=== PATIENT | male | born 1965 | race Caucasian/White ===

== ENCOUNTER → 2017-04-27 | Outpatient (CLI) | payer OTHER ==
[2015-06-16 15:47] VITALS: BP 143/84
[~2017-04-27] MED LIST: AMIT50TA PO; COLE1TAB PO; CONTRAST GIVEN MC PRN; CYAN100070 PO; DICY10CA3 PO; GADOBUTROL 7.5 MMOL/7.5 ML VIAL INT ART ONE; HYDR1TAB12 PO; IOHEXOL 300 MG/ML 50 ML VIAL. INT ART ONE; LIDOCAINE 1% Multi-Dose 20 ML VIAL. IJ ONE; METH25VI27 SQ; OMEP20TA8 PO; OXYC-327 PO; VEDO300V IV
--- NOTE | 2017-04-27 14:26 | KCIC ---
EXAM: Fluoroscopic guided left shoulder injection for MR arthrography. HISTORY: Pain. TECHNIQUE: The risks of the procedure were discussed with the patient and written and verbal consent was obtained. A time out was performed. Fluoroscopic imaging of the left shoulder was performed and a site overlying the joint space was selected for needle entry. The skin overlying this region was sterilely prepped, draped and infiltrated with 1% lidocaine. A spinal needle was then advanced into the joint space with fluoroscopic guidance. Subsequently, a solution containing 0.1 mL Gadavist, 5 mL Omnipaque 300, 5 mL lidocaine and 10 mL saline was injected into the joint space. Fluoroscopic images demonstrate intraarticular accumulation of contrast. The needle was removed and a sterile bandage was placed at the needle entry site. The patient tolerated the procedure without difficulty and was transferred to the MR suite for the post injection MR portion of the exam. The total fluoroscopy time was 40 seconds and a single fluoroscopic image was obtained. IMPRESSION: Successful fluoroscopic guided left shoulder injection for MR arthrography. Please refer to the separate MR arthrogram report for further evaluation details. Electronically signed by: Miriam Suggs MD (04/27/2017 2:22 PM) [id number]
--- NOTE | 2017-04-27 15:28 | KCIC ---
MR arthrogram of the left shoulder Indication: Left shoulder pain. Pain reaching up. Symptoms for 2 months. Technique: Intra-articular contrast injected into the glenohumeral joint and is reported separately. Routine 4 plane sequences were obtained, including ABER positioning. Findings: Mild motion degradation Acromioclavicular joint: Mild widening of the joint could be postsurgical or posttraumatic. Contrast does occupy the joint. No acute bone marrow soft tissue edema here. No evidence of coracoclavicular ligament tear. Rotator cuff: Deep undersurface tear of the anterior footprint of the supraspinatus tendon measures about 1 cm AP diameter and about 80 percent deep. No complete through and through rotator cuff rupture. There is a broad undersurface thinning through the remainder of the supraspinatus and infraspinatus tendons. The subscapularis tendon is intact. No advanced muscle atrophy. Contrast does accumulate in the subdeltoid bursa, could be due to a subtle or occult through and through tear at the far anterior supraspinatus tendon. Articular cartilage: Mild degenerative changes with chondromalacia. Labrum: Tear of the superior labrum. Biceps tendon: Mild tendinosis. Bones: No lesion or acute fracture. Soft tissue: No acute fracture. No evidence of aggressive bone destruction. Impression: 1. Generalized rotator cuff tendinosis. Deep undersurface tearing of the supraspinatus and infraspinatus tendon, particularly at the far anterior footprint. No complete through and through rupture is seen. However, considering the motion degradation limiting detail, and contrast accumulation in the subdeltoid bursa, a subtle full-thickness tear at the anterior footprint is difficult to exclude. 2. Superior labral tear. Electronically signed by: Hakeem Eldridge MD (04/27/2017 3:25 PM) [facility]
== END | disposition home or self-care (01) ==
LOC: KCIC 12:44
PROVIDERS: ATTEND Orthopaedic Surgery
DX: S43.432A Superior glenoid labrum lesion of left shoulder, initial encounter (principal); M94.212 Chondromalacia, left shoulder; X58.XXXA Exposure to other specified factors, initial encounter; Y93.89 Activity, other specified; Y92.89 Other specified places as the place of occurrence of the external cause; Y99.8 Other external cause status
CPT/HCPCS: 73040; 73222; A9585; Q9967

== ENCOUNTER 2017-05-20 05:43 | Day surgery (SDC) | payer OTHER ==
[~2017-05-20] VITALS: Ht 175.3 cm; Wt 83.9 kg
[~2017-05-20 05:43] MED LIST changes: -CONTRAST GIVEN MC PRN; -GADOBUTROL 7.5 MMOL/7.5 ML VIAL INT ART ONE; -IOHEXOL 300 MG/ML 50 ML VIAL. INT ART ONE; -LIDOCAINE 1% Multi-Dose 20 ML VIAL. IJ ONE
[2017-05-20] MEDS ORDERED: MIDAZOLAM HCL/PF 2 MG/2 ML VIAL. ONE ×2 (06:50→06:53)
[2017-05-20] MEDS ORDERED: ROPIVacaine 0.5% PF 30 ML VIAL. ONE (06:50)
[2017-05-20] MEDS ORDERED: EPINEPHrine VIAL 30 MG/30 ML VIAL ONE (06:57)
[2017-05-20] MEDS ORDERED: IV RINGERS,LACTATED 1000ML 1,000 ML IV SCH (07:00)
[2017-05-20] MEDS ORDERED: LIDOCAINE 1% PF 2 ML VIAL. ID PRN (07:00)
[2017-05-20] MEDS ORDERED: fentaNYL PF VIAL 100 MCG/2 ML VIAL IV PRN ×2 (07:00)
[2017-05-20] MEDS ORDERED: PROCHLORPERAZINE 10 MG/2 ML VIAL. IV PRN (07:00)
[2017-05-20] MEDS ORDERED: HYDROmorphone 2 MG/ML VIAL IV PRN (07:00)
[2017-05-20] MEDS ORDERED: MORPHINE SULFATE 4 MG/ML DISP.SYRIN. IV PRN (07:00)
[2017-05-20] MEDS ORDERED: ONDANSETRON PF 4 MG/2 ML VIAL. IV PRN (07:00)
[2017-05-20] MEDS ORDERED: fentaNYL PF VIAL 100 MCG/2 ML VIAL ONE (07:02)
[2017-05-20] MEDS ORDERED: ONDANSETRON PF 4 MG/2 ML VIAL. ONE ×2 (07:02→08:06)
[2017-05-20] MEDS ORDERED: DEXAMETHASONE SOD PHOS 20 MG/5 ML VIAL. ONE (07:02)
[2017-05-20] MEDS ORDERED: FAMOTIDINE 20 MG/2 ML VIAL ONE (07:02)
[2017-05-20] MEDS ORDERED: LIDOCAINE 2% PF Vial for OR 5 ML VIAL. ONE (07:02)
[2017-05-20] MEDS ORDERED: ROCURONIUM 50 MG/5 ML VIAL. ONE (07:02)
[2017-05-20] MEDS ORDERED: PROPOFOL 20 ML IV ONE (07:02)
[2017-05-20] MEDS ORDERED: diphenhydrAMINE 50 MG/ML VIAL ONE (08:06)
[2017-05-20] MEDS ORDERED: PHENYLEPHRINE in 0.9% NACL PF 1 MG/10 ML DISP.SYRIN. IV ONE ×2 (08:19→09:25)
[2017-05-20] MEDS ORDERED: SCOPOLAMINE 1.5MG PATCH. TD ONE (09:00)
[2017-05-20] MEDS ORDERED: GLYCOPYRROLATE 1 MG/5 ML VIAL. ONE (09:24)
[2017-05-20] MEDS ORDERED: SEVOFLURANE > 120 MINUTES. IH ONE (09:49)
--- NOTE | 2017-05-20 10:29 | DISCH ---
DISCHARGE INSTRUCTIONS Condition on Discharge Condition on Discharge: Stable Activity After Discharge Activity Instructions for Disc: Other, see below Other activity instructions: May do fine motor use with elbow at side only, wear immobilizer at night Diet after Discharge Diet after Discharge: Regular Wound Incision Care Wound/Incision Care: Ice to area for comfort, Change dressing Other wound/incision instructi: remove dressing in 2 days may then shower Community/Resources/Services Services at Discharge: Outpatient Therapy (May start physical therapy locally for passive range of motion of left shoulder only expected 5 weeks) Contacting the [facility] after DC Call your doctor for: Concerns you may have Follow-Up Follow up with: Jane 10 days WILLIAM DAWN MD May 20, 2017 10:29
[2017-05-20] MEDS ORDERED: OXYC-328 PO (10:31)
[2017-05-20 11:12] VITALS: BP 139/86
--- NOTE | 2017-05-20 14:24 | PDOC4 ---
Operative Note Operative Note Date of surgery: 05/20/2017 Preoperative diagnosis: Superior labral/biceps anchor tear and suspected distal supraspinatus tear Postoperative diagnosis: SLAP tear and anterior distal supraspinatus tear Operative procedure: Left shoulder arthroscopy with biceps tenodesis and mini open rotator cuff repair Surgeon: Jane Anesthesia: Gen. endotracheal plus scalene block Estimated blood loss: 10 mL Complications: None Operative indications: Patient is well-known to me from a previous rotator cuff repair years ago that it done very well until a more recent injury. He was initially treated nonoperatively with apparently an intact rotator cuff but then continued to have ongoing symptoms with biceps labral signs and following an MRI arthrogram was suspicious for a SLAP tear and likely a near full- thickness injury to the distal supraspinatus anteriorly. I had gone over with him the risks benefits postoperative course of possible surgical treatment repair versus bicipital tenodesis to address the superior labrum and examination of the rotator cuff with possible repair as indicated. We also covered that we would address any further pathology as needed. He is aware of the long recovery process and the rationale for protection physical therapy needed and we covered the possibility of medical or other anesthetic complications infection nerve or blood vessel damage continued pain possibility of nonhealing among others all his questions were answered he wants proceed with surgical evaluation and treatment. Operative text: Patient was identified procedure verified patient placed in the supine position on the operating table. After adequate amounts of general endotracheal anesthesia and a pre-existing scalene block were obtained he was placed in the decubitus position left side up all bony prominences were well- padded and the left shoulder was examined under anesthesia found to have full range of motion with no instability. The left shoulder was then prepped and draped in standard sterile fashion placed in the arthroscopic arm taveras with a total of 10 pounds of traction and after timeout was performed patient procedure again identified and verified standard posterior portal was established in anterior portal established using spinal needle localization and the shoulder joint was systematically examined he was noted to have a type II SLAP tear with separation from the superior glenoid the rest the biceps was in reasonable condition however the labrum was somewhat degenerative superiorly. Subscapularis tendon was intact no biceps subluxation was noted however he did have what appeared to be a full-thickness defect of the anterior distal supraspinatus and otherwise intact previous rotator cuff repair normal bare area of the humerus capsule ligament structures and glenohumeral joint surfaces. Given that a rotator cuff repair would be necessary I elected to perform a biceps tenodesis to avoid the stiffness complications with a SLAP repair biceps tendon was released and tagged subacromial space was then entered bursa was cleared to allow visualization he had adequate distal clavicle excision from previous as well as type I acromion and the rotator cuff was able to be debrided and rapidly mobilized to allow repair of the distal anterior supraspinatus. I elected to do both and a small deltoid splitting mini open incision. All suture 2.0 anchors were placed along the medial aspect of the footprint and sutures placed in a mattress type fashion and were secured with sliding locking knots backed up by alternating post-half hitches with excellent medial row repair noted. Fayenne anchors were used for lateral row fixation as the medial row sutures were placed with a free needle through the biceps tendon which was anchored to the both lateral row fixation anchors with excellent fixation obtaining both biceps tenodesis in the lateral row repair and rotator cuff repair was noted to be intact in all degrees of internal/external rotation and watertight. Joint was drained of arthroscopic fluid subcutaneous closure of the mini open incision with buried Vicryl suture skin closure with nylon sterile dressings were applied patient was placed in an immobilizer returned recovery room in stable condition having tolerated procedure well WILLIAM DAWN MD May 20, 2017 14:23
== END 2017-05-20 11:55 | disposition home or self-care (01) ==
LOC: SURG 05:43
PROVIDERS: ATTEND Orthopaedic Surgery
DX: S46.012A Strain of muscle(s) and tendon(s) of the rotator cuff of left shoulder, initial encounter (principal); S43.432A Superior glenoid labrum lesion of left shoulder, initial encounter; M94.212 Chondromalacia, left shoulder; X58.XXXA Exposure to other specified factors, initial encounter; Y93.89 Activity, other specified; Y92.89 Other specified places as the place of occurrence of the external cause; Y99.8 Other external cause status; Z79.899 Other long term (current) drug therapy; Z98.890 Other specified postprocedural states
CPT/HCPCS: 29827; 29828; C1713; J0171; J0690; J1100; J1200; J2250; J2370; J2405; J2704; J2795; J3010; J3490; J7120; S0028; J2001

== ENCOUNTER → 2018-10-05 | Outpatient (CLI) | payer OTHER ==
[~2018-10-05] MED LIST changes: -HYDR1TAB12 PO; +HYDR1TAB13 PO; -OXYC-327 PO; +OXYC1TAB19 PO; +OXYC1TAB22 PO
--- NOTE | 2018-10-05 13:45 | KCIC ---
MR of the left knee HISTORY: Left knee pain. TECHNIQUE: Routine multiplanar sequences are obtained. FINDINGS: There is no evidence of a medial meniscal tear. No evidence of a lateral meniscal tear. The anterior and posterior cruciate ligaments are intact. There is a lateral femoral sidewall osteophyte impinging upon the ACL. Medial collateral ligament is intact. Iliotibial band unremarkable. Fibular collateral ligament, biceps femoris tendon and popliteus tendon are intact. The extensor mechanism is intact. Moderate joint effusion. No evidence of osteochondral loose body. Severe cartilage loss at the lateral aspect of the patellofemoral joint with subchondral bone exposure. Severe cartilage loss with subchondral bone exposure at the medial femoral condyle with subchondral marrow edema. Mild marginal degenerative spurring throughout the knee. No aggressive bone destruction. No acute fracture. No significant Cerna's cyst. IMPRESSION: 1. Primary osteoarthritis. Severe cartilage loss at the patellofemoral joint and medial femoral condyle. 2. 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 No acute ACL rupture. Electronically signed by: Hakeem Eldridge MD (10/05/2018 1:42 PM) [id number]
== END | disposition home or self-care (01) ==
LOC: KCIC MRI 11:42
PROVIDERS: ATTEND Orthopaedic Surgery
DX: M17.12 Unilateral primary osteoarthritis, left knee (principal); M25.762 Osteophyte, left knee
CPT/HCPCS: 73721